=== PATIENT | male | born 1950 | race Caucasian/White ===

== ENCOUNTER 2016-09-11 14:42 | Emergency (ER) | payer MEDICARE ==
--- NOTE | 2016-09-11 14:48 | ER Document Report ---
ED Medical Screen (RME) - General Stated Complaint: POST OP COMPLICATIONS Notes: 66 yo male c/o post op bleeding. 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 Had 53 ramya removed this morning at [facility]. Pt is actively bleeding from incision. pants are saturated with blood. charge nurse notified of patient status (RIC HERMOSILLO) Doctor's Discharge - Discharge Clinical Impression: Seroma, postoperative Disposition: HOME, SELF-CARE Additional Instructions: MINIMIZE USE OF LEFT LEG, KEEP IT ELEVATED WHEN POSSIBLE. KEEP BANDAGE IN PLACE, CLEAN, AND DRY. CONTINUE USUAL MEDS. FOLLOW UP WITH DR. PALAFOX IN OFFICE TOMORROW (FRIDAY) AT 10:35 AM. RETURN PROMPTLY TO E.R. IF PROBLEMS. Referrals: CECILIO POLANCO MD [NO LOCAL MD] - Follow up tomorrow
--- NOTE | 2016-09-11 16:09 | ER Document Report ---
ED Extremity Problem, Lower - General Chief Complaint: Post Surgical Bleeding Stated Complaint: POST OP COMPLICATIONS Mode of Arrival: Ambulatory Information source: Patient TRAVEL OUTSIDE OF THE [place] IN LAST 30 DAYS: No - HPI Patient complains to provider of: Other - DRAINAGE FROM SURGICAL WOUND Location: Thigh - LEFT Occurred: This afternoon Where: Other - @ WORK, IN OFFICE Onset/Duration: Sudden Quality of pain: No pain Severity: Moderate Context: Recent surgery - MALIGNAN TUMOR EXCISED 08/21 @ [facility] Associated symptoms: denies: Chest pain, Dizzy, Fainting, Fever Exacerbated by: Nothing Relieved by: Nothing Past Medical History - General Information source: Patient - Social History Smoking Status: Unknown if Ever Smoked Chew tobacco use (# tins/day): No Frequency of alcohol use: None Drug Abuse: None Lives with: Spouse/Significant other Family History: Reviewed & Not Pertinent Patient has suicidal ideation: No Patient has homicidal ideation: No - Past Medical History Cardiac Medical History: Reports: None Pulmonary Medical History: Reports: None EENT Medical History: Reports: None Neurological Medical History: Reports: None Endocrine Medical History: Reports: None Renal/ Medical History: Denies: Hx Peritoneal Dialysis Malignancy Medical History: Reports Hx Bone Cancer GI Medical History: Reports: None Musculoskeltal Medical History: Reports None Psychiatric Medical History: Reports: None Past Surgical History: Reports: Hx Orthopedic Surgery Review of Systems - Review of Systems Constitutional: No symptoms reported EENT: No symptoms reported Cardiovascular: No symptoms reported. denies: Dyspnea, Dizziness, Lightheaded Respiratory: No symptoms reported Gastrointestinal: No symptoms reported Genitourinary: No symptoms reported Musculoskeletal: No symptoms reported Skin: See HPI Neurological/Psychological: No symptoms reported Physical Exam - Vital signs Vitals: Temp Pulse Resp BP Pulse Ox 98.5 F 86 18 148/83 H 96 09/11/16 16:45 09/11/16 16:45 09/11/16 16:45 09/11/16 16:45 09/11/16 16:45 Interpretation: Hypertensive. No: Tachycardic, Tachypneic - General General appearance: Appears well, Alert In distress: None - HEENT Head: Normocephalic Eyes: Normal Conjunctiva: Normal Ears: Normal Nasal: Normal Mouth/Lips: Normal Mucous membranes: Normal - Respiratory Respiratory status: No respiratory distress - Cardiovascular Rhythm: Regular Pulses: Normal: Dorsalis pedis Normal capillary refill: Yes - Abdominal Inspection: Normal Distension: No distension - Extremities General upper extremity: Normal inspection General lower extremity: No: Normal inspection - L. THIGH (SEE BELOW) Thigh: Other - CLOTHING AND BANDAGE SATURATED W/ SEROSANGUINEOUS FLUID, EST. VOLUME 700cc. BANDAGE REMOVED, WOUND HEALING WELL, 2cm OPEN AREA PROXIMALLY, W/ MINIMAL FLUID DRAINAGE EXPRESSED. - Neurological Neuro grossly intact: Yes Cognition: Normal Orientation: AAOx4 - Psychological Associated symptoms: Normal affect, Normal mood - Skin Skin Temperature: Warm Skin Moisture: Dry Skin Color: Normal Skin Turgor: Elastic Course - Vital Signs Vital signs: Temp Pulse Resp BP Pulse Ox 98.5 F 86 18 148/83 H 96 09/11/16 16:45 09/11/16 16:45 09/11/16 16:45 09/11/16 16:45 09/11/16 16:45 - Consults DR. PALAFOX Time consulted: 16:00 Reason for consultation: 09/11/16 16:11 Telephone consultation was sought with the patient's orthopedic surgeon, Dr. Betty Lorenzo. Dr. Palafox had left the office for the day, but I spoke his historian research assistant , who in turn discussed case by phone with Dr. Palafox. Advice was to replace bandage with a new, dry one with plenty of bulk for good absorption. He is to minimize activity, continue usual meds, and will be seen in office by Dr. Betty Lorenzo tomorrow morning at 10:30 AM. Discharge - Discharge Clinical Impression: Seroma, postoperative Disposition: HOME, SELF-CARE Additional Instructions: MINIMIZE USE OF LEFT LEG, KEEP IT ELEVATED WHEN POSSIBLE. KEEP BANDAGE IN PLACE, CLEAN, AND DRY. CONTINUE USUAL MEDS. FOLLOW UP WITH DR. PALAFOX IN OFFICE TOMORROW (FRIDAY) AT 10:35 AM. RETURN PROMPTLY TO E.R. IF PROBLEMS. Referrals: CECILIO POLANCO MD [NO LOCAL MD] - Follow up tomorrow
[2016-09-11 16:53] VITALS: BP 148/83
== END 2016-09-11 16:53 | disposition home or self-care (01) ==
LOC: ER 14:42
DX: M96.842 Postprocedural seroma of a musculoskeletal structure following a musculoskeletal system procedure (principal); Z85.830 Personal history of malignant neoplasm of bone
CPT/HCPCS: 99283